=== PATIENT | female | born 1935 | race Caucasian/White ===

== ENCOUNTER 2016-03-30 08:07 | Outpatient (CLI) | payer MEDICARE, OTHER | END 2016-03-30 08:10 | LOC: POD 08:07 | PROVIDERS: ATTEND Podiatrist Public Medicine | DX: B35.1 Tinea unguium (principal); L60.0 Ingrowing nail; M79.674 Pain in right toe(s); M79.675 Pain in left toe(s) | CPT/HCPCS: 11721; G0463 ==

== ENCOUNTER 2016-05-15 12:15 | Emergency (ER) | payer MEDICARE, OTHER ==
[2016-05-15] MEDS ORDERED: 0.9 % SODIUM CHLORIDE 1,000 ML IV ONE ×3 (12:50→14:12)
[2016-05-15 13:19] LABS: BASOPHILS % 0.7 (0.0-1.5); EOSINOPHILS % 2.1 % (0.0-6.8); MEAN CORPUSCULAR HEMOGLOBIN 31.8 pg (28.0-34.0); MEAN CORPUSCULAR VOLUME 91.4 fl (80.0-100.0); NEUTROPHILS # 3.8 # k/uL (1.4-7.7)
--- NOTE | 2016-05-15 13:23 | ED Physician Documentation ---
General Adult - HISTORIAN Historian: patient - HPI Stated Complaint: diarrhea Chief Complaint: General Adult Additional Information: Nausea and diarrhea began 4/5. Chills that evening. Diarrhea has continued since , multipe times daily. No melena or hematochezia. No vomiting. Feels tired, "worn out." - ROS CONST: fever (see above) - PAST HX Past History: none Allergies/Adverse Reactions: Allergies Allergy/AdvReac Type Severity Reaction Status Date / Time No Known Allergies Allergy Verified 05/15/16 12:33 Home Medications: Ambulatory Orders Medication Instructions Recorded Aspirin [Adult Low Dose Aspirin EC] 81 mg PO DAILY 05/15/16 - SOCIAL HX Smoking History: non-smoker - FAMILY HX Family History: No (no signif) - VITAL SIGNS Vital Signs: Vital Signs Temp Pulse Resp BP Pulse Ox 99.9 F H 103 H 19 134/73 94 05/15/16 13:12 05/15/16 13:12 05/15/16 13:12 05/15/16 13:12 05/15/16 13:12 - REVIEWED ASSESSMENTS Nursing Assessment Reviewed: Yes Vitals Reviewed: Yes Progress - Progress Progress: 2L NS as boluses. Feels much better. Orthostatic vitals w/o significant deviance. Urine w sp gr 1.030. ED Results Lab/Radiology - Orders Orders: ED Orders Category Date Time Status Place Saline Lock/IV Now Care 05/15/16 12:58 Active CBC/PLATELET/DIFF Routine Lab 05/15/16 13:02 Received CMP Routine Lab 05/15/16 13:01 Received URINALYSIS Routine Lab 05/15/16 Ordered 0.9 % Sodium Chloride [Normal Saline] 1,000 ml Med 05/15/16 12:50 Discontinued IV .STK-MED 0.9 % Sodium Chloride [Normal Saline] 1,000 ml Med 05/15/16 12:58 Active IV Q1H General Adult Physical Exam - PHYSICAL EXAM GENERAL APPEARANCE: mild distress EENT: eye inspection normal, ENT inspection normal, pharynx normal NECK: normal inspection, supple RESPIRATORY: no resp distress, breath sounds normal CVS: reg rate & rhythm, heart sounds normal, no murmur ABDOMEN: soft, normal bowel sounds, non-tender RECTAL: deferred BACK: normal inspection SKIN: warm/dry, normal color EXTREMITIES: no evidence of injury NEURO: CN's nml as tested, motor nml, sensation nml Discharge Clincal Impression: Diarrhea Additional Instructions: Return to the ER if you are not able to urinate for 8 hours or more. Home Medications: Ambulatory Orders Aspirin [Adult Low Dose Aspirin EC] 81 mg PO DAILY 05/15/16 Condition: Good Disposition: 01 HOME, SELF-CARE Decision to Admit: NO Decision Time: 15:11
[2016-05-15 13:26] LABS: eGFR (African) > 60; eGFR (Non-African) 42
[2016-05-15 15:23] VITALS: BP 149/70
[2016-05-16 05:46] LABS: APPEARANCE,URINE CLEAR (CLEAR); COLOR,URINE YELLOW (YELLOW); OCCULT BLOOD,URINE TRACE-INTACT (NEGATIVE); UROBILINOGEN URINE 0.2 Eu (0.2-1.0)
== END 2016-05-15 15:20 | disposition home or self-care (01) ==
LOC: ED 12:15
DX: R19.7 Diarrhea, unspecified (principal)
CPT/HCPCS: 80053; 81002; 85025; J7030; 96360; 99283; S1016

== ENCOUNTER 2016-08-03 07:57 | Outpatient (CLI) | payer MEDICARE, OTHER | END 2016-08-03 08:00 | LOC: POD 07:57 | PROVIDERS: ATTEND Podiatrist Public Medicine | DX: B35.1 Tinea unguium (principal); L60.0 Ingrowing nail; M20.41 Other hammer toe(s) (acquired), right foot; M20.42 Other hammer toe(s) (acquired), left foot; M79.675 Pain in left toe(s); M79.674 Pain in right toe(s) | CPT/HCPCS: 11721; G0463 ==

== ENCOUNTER 2017-04-05 10:14 | Outpatient (CLI) | payer MEDICARE, OTHER | END 2017-04-05 10:15 | LOC: POD 10:14 | PROVIDERS: ATTEND Podiatrist Public Medicine | DX: B35.1 Tinea unguium (principal); L60.0 Ingrowing nail; M79.674 Pain in right toe(s); M79.675 Pain in left toe(s); M20.41 Other hammer toe(s) (acquired), right foot; M20.42 Other hammer toe(s) (acquired), left foot | CPT/HCPCS: 11721; G0463 ==